=== PATIENT | female | born 1980 | race Caucasian/White ===

== ENCOUNTER 2023-02-22 14:51 | Emergency (ER) | payer OTHER, SELFPAY ==
--- NOTE | 2023-02-22 14:52 | ED.FEMALEGU ---
HPI - Female Genitourinary General Chief complaint: Urogenital-Female Stated complaint: UTI Time Seen by Provider: 02/22/23 14:52 Source: patient Mode of arrival: ambulatory Limitations: no limitations History of Present Illness HPI Narrative: Chiquis is a 42-year-old female patient presenting to the clinic today with complaints of possible urinary tract infection. She reports symptoms of dysuria, frequency, and low urine output started this morning. She has taking some [id number] azo to help alleviate her symptoms. She denies any fever or chills. She is also reporting some low back pain and abdominal cramping. She denies any vaginal discharge Related Data Home Medications Medication Instructions Recorded Confirmed levetiracetam 750 mg tablet 75 mg PO BID 02/22/23 02/22/23 losartan 50 mg tablet 50 mg PO DAILY 02/22/23 02/22/23 rizatriptan 10 mg tablet 10 mg PO HS PRN Migraine Headache 02/22/23 02/22/23 topiramate 100 mg tablet 100 mg PO HS 02/22/23 02/22/23 Allergies Allergy/AdvReac Type Severity Reaction Status Date / Time No Known Allergies Allergy Mild Verified 02/22/23 14:53 Review of Systems Review of Systems: Pertinent positives per HPI. Patient denies any fever, chills, rash, headache, visual changes, dizziness, cough, runny nose, sore throat, shortness of breath, chest pain, palpitations, nausea, vomiting, diarrhea, constipation PMFSH Comments At the time of my signature, I reviewed and agree with the nursing past medical, surgical, social, and family history. There is no relevant family history pertinent to the patient complaint. Exam Narrative: General: Well-developed, well nourished, in no apparent distress. Head: Normocephalic, atraumatic. Cardio: Regular rate and rhythm, s1 and s2 normal, no murmur appreciated. Resp: Clear to auscultation bilaterally, no rhonchi, rales, wheezing or rubs. Abdomen: Soft, pliable, bowel sounds present in all quadrants, tender to palpation over the suprapubic bladder, no organomegly, no CVAT tenderness. Course Course Emergency Course: Portions of this record may have been created with voice recognition software. Level of Care: Express Care Visit Vital Signs Vital signs: Vital signs reviewed MDM - Female Genitourinary MDM Narrative Medical decision making narrative: At the time of visit patient is resting comfortably on exam table. Urinalysis was skewed due to azo so we will send for culture. I will go ahead and treat with Macrobid. Supportive measures were discussed with the patient she voiced understanding discharge instructions agrees to treatment plan. Differential Diagnosis Differential diagnosis: Likely urinary tract infection and cystitis Discharge Plan Discharge Clinical Impression: Urinary tract infection Qualifiers: Urinary tract infection type: acute cystitis Hematuria presence: with hematuria Qualified Code(s): N30.01 - Acute cystitis with hematuria Patient Disposition: Home, Self-Care Condition: Stable Instructions: Antibiotic Form, Urinary Tract Infection in Women (ED) Additional Instructions: UA is skewed due to azo. Will send urine for culture Take Macrobid as prescribed May continue taking azo for urinary symptoms Increase fluids and stay well hydrated Wipe front to back. May use wet wipes. Avoid tub baths If sexually active- pee before and after intercourse. Wear cotton panties Avoid tight clothing up against the genitals Follow up with your PCP in 1 week if symptoms persist. Prescriptions: New nitrofurantoin monohyd/m-cryst [Macrobid] 100 mg capsule 100 mg PO Q12H 5 Days Qty: 10 0RF Rx Instructions: must administer with a meal/food No Action losartan 50 mg tablet 50 mg PO DAILY rizatriptan 10 mg tablet 10 mg PO HS PRN (Reason: Migraine Headache) levetiracetam 750 mg tablet 75 mg PO BID topiramate 100 mg tablet 100 mg PO HS Follow-up/Referrals: Natalio
[2023-02-22 15:05] VITALS: BP 117/101; PULSE 128; RESP 18; TEMP 37.1; O2SAT 99
== END 2023-02-22 15:15 | disposition home or self-care (01) ==
LOC: EXPTROY 14:59
PROVIDERS: Emergency Provider Nurse Practitioner Family; PCP Family Medicine
DX: N30.01 Acute cystitis with hematuria (principal); G40.909 Epilepsy, unspecified, not intractable, without status epilepticus; I10 Essential (primary) hypertension
CPT/HCPCS: 81003; 87086; 87088; 99213; G0463

== ENCOUNTER 2023-06-17 08:01 | Emergency (ER) | payer OTHER, SELFPAY ==
--- NOTE | ~2023-06-17 | XR_ITS ---
XR abdomen/kub 1V DATE: 06/17/2023 08:31 INDICATION: Left flank pain, started last night. TECHNIQUE: AP supine view COMPARISON: None FINDINGS: IUD overlies the pelvis. Several probable calcified pelvic phleboliths. Approximately 4.8 x 6.3 mm calcification overlies the upper pole of the left kidney. Approximately 3.5 mm long very thin linear calcification approximately 2.8 mm even thinner subtle saige ear calcification overlie the mid right kidney. Noncontrast CT abdomen pelvis would be more sensitive and specific for detection of urinary tract calculi. No visceromegaly is evident. The psoas shadows are intact. There is no evidence of bowel obstruction. Included skeletal structures are unremarkable. IMPRESSION: Calcifications overlying the renal silhouettes; consider noncontrast CT abdomen pelvis fo r evaluation of possible urinary tract calculi Reviewed, dictated and finalized at [facility]. Reviewed, dictated and finalized at [facility]. IMPRESSION: Calcifications overlying the renal silhouettes; consider noncontras t CT abdomen pelvis for evaluation of possible urinary tract calculi
--- NOTE | 2023-06-17 08:08 | ED.FEMALEGU ---
HPI - Female Genitourinary General Chief complaint: Urogenital-Female Stated complaint: Female Urogenital Time Seen by Provider: 06/17/23 08:08 Source: patient Mode of arrival: ambulatory Limitations: no limitations History of Present Illness HPI Narrative: 42 Year old female presents with complaint of hematuria for the past 4 days. Has had urgency, frequency, left flank pain for the past 2 days. Reports left flank pain getting significantly worse, unable to sleep last night due to pain. Afebrile. Denies nausea vomiting. No history of kidney stones. Pt tearful states back pain is really bad . All systems reviewed and negative except as noted above. Related Data Home Medications Medication Instructions Recorded Confirmed levetiracetam 750 mg tablet 75 mg PO BID 02/22/23 06/17/23 losartan 50 mg tablet 50 mg PO DAILY 02/22/23 06/17/23 rizatriptan 10 mg tablet 10 mg PO HS PRN Migraine Headache 02/22/23 06/17/23 topiramate 100 mg tablet 100 mg PO HS 02/22/23 06/17/23 levonorgestrel 21 mcg/24 hours (8 See Rx Instructions .Route .COMPLEX 06/17/23 06/17/23 yrs) 52 mg intrauterine device (Mirena) Allergies Allergy/AdvReac Type Severity Reaction Status Date / Time No Known Allergies Allergy Mild Verified 06/17/23 08:03 Review of Systems Review of Systems: CONSTITUTIONAL: Denies fever, chills, or sweats. EYES: Denies visual changes, redness, or discharge. ENT: Denies rhinorrhea, congestion, sore throat, or otalgia. CARDIOVASCULAR: Denies chest pain, palpitations, or edema. RESPIRATORY: Denies cough or dyspnea. GASTROINTESTINAL: Denies abdominal pain, nausea, vomiting, or diarrhea. GENITOURINARY: Denies dysuria . Reports hematuria, frequency, urgency, left flank pain. SKIN: Denies rash or itching. MUSCULOSKELETAL: Denies back pain, joint pain, or myalgia. NEUROLOGIC: Denies headache, numbness, or weakness. PSYCHIATRIC: Denies anxiety or depression. All other systems reviewed are negative, except as documented in HPI. [facility] Past Medical History Medical History (Updated 06/17/23 @ 09:07 by Lisset Camarillo NP) Asthma Hypertension Migraine headache Seizure disorder Thyroid nodule Surgical History Surgical History (Updated 05/28/23 @ 12:21 by ASIYA Randall) History of section 2012, 2015 Social History Social History (Updated 05/28/23 @ 11:10 by Chanelle Marr MA) Smoking status: Never smoker Alcohol intake: current Substance use: never Substance use type: does not use Lack of Transportation: No Lack of Food: Never True Current Housing: I Have Housing Concerned About Future Housing: No Difficulty Paying Gas/Electric Bills: No Difficulty Paying for Meds: No Currently Unemployed: No Education: Master's Degree or Higher Difficulty w/ Childcare or Family Care: No Living arrangements: with family Occupation/Education: occupation Gender identity (if verbalized by the patient): Female Sexual Orientation (if Verbalized by the Patient): Straight or Heterosexual Comments At time of signature, agree with nursing past medical, surgical, social and family history. There is no relevant family history pertinent to the presenting complaint. Exam Narrative: GENERAL: This is a well-nourished, well-developed patient, in no apparent distress. HEAD: normocephalic, atraumatic. EYES: PERRL. Sclera clear/white. Vision is grossly intact. EARS: External ears normal NOSE: External nose normal NECK: Neck supple, non-tender without lymphadenopathy, masses or thyromegaly. CARDIOVASCULAR: Regular rate and rhythm without murmurs, gallops, or rubs. RESPIRATORY: Clear to auscultation. Breath sounds equal bilaterally. No wheezes, rales, or rhonchi. SKIN: warm, Dry, intact with no suspicious lesions or rash, good texture and turgor. NEURO: awake, alert, and oriented to person, place and time. There were no obvious focal neurologic abnormalities. EXTREMITIES:
[2023-06-17 08:11] VITALS: BP 137/90; PULSE 102; RESP 18; TEMP 36.5; O2SAT 100
[2023-06-17] MEDS: KETOROLAC 30 MG/ML VIAL (*BKC) IM (09:07)
== END 2023-06-17 09:16 | disposition short-term general hospital (02) ==
PROVIDERS: Emergency Provider Nurse Practitioner Family; PCP Family Medicine
DX: N20.0 Calculus of kidney (principal); J45.909 Unspecified asthma, uncomplicated; I10 Essential (primary) hypertension; G40.909 Epilepsy, unspecified, not intractable, without status epilepticus
CPT/HCPCS: 74018; 81003; 96372; 99213; G0463; J1885

== ENCOUNTER 2023-06-17 09:30 | Emergency (ER) | payer OTHER, SELFPAY ==
--- NOTE | ~2023-06-17 | CT_ITS ---
EXAMINATION: CT abdomen pelvis wo con DATE: 06/17/2023 10:27 INDICATION: Left flank pain. Hematuria. TECHNIQUE: Computed tomography (CT) of the abdomen and pelvis was performed without intravenous contr ast. Automated exposure control and iterative reconstruction technique were employed. The dose-length product was 179.19 mGy-cm. COMPARISON: None. FINDINGS: The visualized portions of the lung bases are clear without pneumonia or pleural effusion. The heart size is normal. No pericardial effusion. The liver, gallbladder, spleen, pancreas, adrenal glands, and right kidney are normal. There is a 6 mm stone in left kidney. There is a 3 mm stone at l eft ureterovesicular junction. There is mild left hydronephrosis. There is an intrauterine device in expected position. There are no dilated loops of bowel. The appendix is not visualized. There are no pathologically enlarged lymph nodes. There is no free intraperitoneal fluid. There is thoracolumbar d extroscoliosis. IMPRESSION: 1. 3 mm stone at left ureterovesicular junction with mild left hydronephrosis. 2. 6 mm nonobstructing left kidney stone. Reviewed, dictated and finalized at [facility].
--- NOTE | ~2023-06-17 | XR_ITS ---
EXAMINATION: XR abdomen/kub 1V DATE: 06/17/2023 10:47 INDICATION: Left ureteral stone. TECHNIQUE: A supine view of the abdomen on 2 radiographs was obtained. COMPARISON: CT abdomen and pelvis 06/17/2023 FINDINGS: There are no dilated loops of bowel. There is an intrauterine device in expected position. There is a 6 mm stone in left kidney. There is a 3 mm stone at left ureterovesicular junction. There are phleboliths in the pelvis. IMPRESSION: 1. 3 mm stone at left ureterovesicular junction. 2. 6 mm left kidney stone. Reviewed, dictated and finalized at [facility].
[2023-06-17 09:31] VITALS: BP 130/92; PULSE 102; RESP 16; TEMP 36.9; O2SAT 100
--- NOTE | 2023-06-17 09:45 | ED.FEMALEGU ---
HPI - Female Genitourinary General Chief complaint: Urogenital-Female Stated complaint: kidney stone Time Seen by Provider: 06/17/23 09:34 Source: patient and old records reviewed Mode of arrival: ambulatory Limitations: no limitations History of Present Illness HPI Narrative: Patient is a 42-year-old female who presents ED with report of left flank pain. Patient reports she experienced lower abdominal cramping and hematuria 4 to 5 days ago. Yesterday she experienced urinary frequency and urgency. She assumed she was developing a UTI. Throughout the night, she developed pain in her left flank region, which radiated around to her left abdomen. Pain was constant throughout the night. She went to an urgent care this morning and was told she had left renal stones via KUB x-ray. She was then referred here for further evaluation. Patient was given a dose of Toradol at the urgent care and has no pain currently. Denies any nausea, vomiting, fevers. Denies previous history of kidney stones. Denies diarrhea, constipation. Related Data Home Medications Medication Instructions Recorded Confirmed levetiracetam 750 mg tablet 75 mg PO BID 02/22/23 06/17/23 losartan 50 mg tablet 50 mg PO DAILY 02/22/23 06/17/23 rizatriptan 10 mg tablet 10 mg PO HS PRN Migraine Headache 02/22/23 06/17/23 topiramate 100 mg tablet 100 mg PO HS 02/22/23 06/17/23 levonorgestrel 21 mcg/24 hours (8 See Rx Instructions .Route .COMPLEX 06/17/23 06/17/23 yrs) 52 mg intrauterine device (Mirena) Allergies Allergy/AdvReac Type Severity Reaction Status Date / Time No Known Allergies Allergy Mild Verified 06/17/23 09:50 Review of Systems Review of Systems: CONSTITUTIONAL: Denies fever, chills, or sweats. CARDIOVASCULAR: Denies chest pain. RESPIRATORY: Denies dyspnea. GASTROINTESTINAL: See HPI. GENITOURINARY: See HPI. SKIN: Denies rash or itching. MUSCULOSKELETAL: See HPI. NEUROLOGIC: Denies headache, numbness, or weakness. All systems reviewed & are unremarkable except as noted in HPI and below PMFSH Past Medical History Medical History Asthma Hypertension Migraine headache Seizure disorder Thyroid nodule Surgical History Surgical History History of section 2015 Social History Social History Smoking status: Never smoker Alcohol intake: current Substance use: never Substance use type: does not use Lack of Transportation: No Lack of Food: Never True Current Housing: I Have Housing Concerned About Future Housing: No Difficulty Paying Gas/Electric Bills: No Difficulty Paying for Meds: No Currently Unemployed: No Education: Master's Degree or Higher Difficulty w/ Childcare or Family Care: No Living arrangements: with family Occupation/Education: occupation Gender identity (if verbalized by the patient): Female Sexual Orientation (if Verbalized by the Patient): Straight or Heterosexual Exam Narrative: GENERAL: Well appearing, thin, non-toxic, in no acute distress. HEAD: Normocephalic, atraumatic. NECK: Supple. No adenopathy, no masses. RESPIRATORY: Airway patent, respirations nonlabored. Clear to auscultation bilaterally, no rales, rhonchi, wheezing. CARDIOVASCULAR: Regular rate and rhythm without murmurs, rubs, or gallops. Radial pulses 2+ and equal bilaterally. ABDOMINAL: Soft, minimal tenderness in lower pelvic/suprapubic region, nondistended, no hepatosplenomegaly. Normoactive BS. No significant CVA tenderness to percussion. MUSCULOSKELETAL: Moves all extremities. Strength/ROM intact without gross deformities. SKIN: Warm, dry, normal color. No rashes. NEURO: A&O X3. Speech clear. Cranial nerves II-XII grossly intact. Steady gait. No ataxic movements. PSYCHIATRIC: Appropriate mood and affect. Normal interact
[2023-06-17 09:55] LABS: Basophils Percent Auto 0.3 % (0.2-1.2); Eosinophils Percent Auto 0.4 % (0-4.4); Hematocrit 42.1 % (37.0-47.0); Hemoglobin 13.5 g/dL (12.0-15.0); Immature Granulocyte Absolute 0.04 K/mm3 (0.00-0.031); Immature Granulocyte Percent A 0.4 % (0-0.5); Lymphocytes Absolute Auto 0.96 K/mm3 (0.9-3.2); Lymphocytes Percent Auto 10.5 % (18.3-44.2); Mean Corpuscular HGB Conc 32.1 g/dl (32-36); Mean Corpuscular Hemoglobin 28.8 pg (26-34); Mean Corpuscular Volume 89.8 fl (80-100); Mean Platelet Volume 9.2 fl (7.4-10.4); Monocytes Absolute Auto 0.4 K/mm3 (0.1-0.6); Monocytes Percent Auto 4.2 % (2.6-8.5); Neutrophils Absolute Auto 7.7 K/mm3 (1.3-6.7); Neutrophils Percent Auto 84.2 % (45.5-73.1); Platelet Count Result 212 k/mm3 (150-375); Red Blood Count 4.69 M/mm3 (4.2-5.4); Red Cell Distribution Width 12.8 % (11.5-14.5); White Blood Count 9.1 K/mm3 (4.5-10.0)
[2023-06-17 10:01] LABS: Appearance Urine Clear (Clear); Bacteria Urine None Seen /hpf; Bilirubin Urine Negative (Negative); Blood Urine 1+ (Negative); Color Urine Yellow (Yellow); Glucose Urine UA Negative (Negative); Ketones Urine Negative (Negative); Leukocyte Esterase Ur Negative LEU/UL (Negative); Nitrate Urine Negative (Negative); Non Pathogenic Casts 0-2; Protein Urine Negative (Negative); RBC Urine 0-2 /hpf (0-2); Specific Grav Ur 1.009 (1.001-1.035); Squamous Epithelial Cell Urine None seen /hpf (Few); WBC Urine 0-5 /hpf
[2023-06-17 10:07] LABS: Anion Gap 9 mmol/L (8-16); Blood Urea Nitrogen 18 mg/dL (7-17); Carbon Dioxide 23 mmol/L (22-30); Chloride 108 mmol/L (98-107); Estimated CRCL calculation 56 ml/min; Estimated Glomerular Filt Rate > 60; Glucose 106 mg/dL (65-110); Lipase 93 U/L (23-300); Potassium 3.6 mmol/L (3.4-5.0); Sodium 140 mmol/L (137-145)
[2023-06-17 10:25] LABS: Add Urine Microscopic? YES
[2023-06-17] MEDS: TAMSULOSIN HCL 0.4 MG CAPSULE PO (11:13)
[2023-06-17 11:18] VITALS: BP 128/74; PULSE 87; RESP 16; O2SAT 99
== END 2023-06-17 11:19 | disposition home or self-care (01) ==
PROVIDERS: Emergency Provider Physician Assistant; PCP Family Medicine
DX: N13.2 Hydronephrosis with renal and ureteral calculous obstruction (principal); J45.909 Unspecified asthma, uncomplicated; I10 Essential (primary) hypertension; G40.909 Epilepsy, unspecified, not intractable, without status epilepticus
CPT/HCPCS: 36415; 74018; 74176; 80048; 81001; 81003; 81025; 83690; 85025; 96372; 99284; A9270; J1885

== ENCOUNTER 2025-06-16 14:05 | Outpatient (CLI) | payer OTHER, SELFPAY ==
--- NOTE | ~2025-06-16 | US_ITS ---
US thyroid INDICATION: Nontoxic thyroid nodule TECHNIQUE: Real-time sonographic images of the thyroid gland were obtained. COMPARISON: Ultrasound dated 02/21/2017 FINDINGS: The right thyroid lobe measures 4.8 x 1.4 x 1.3 cm. The left thyroid lobe measures 4.7 x 2 .5 x 1.9 cm. There are bilateral thyroid nodules. Laterally in the right thyroid gland there is a 6 m m oval hypoechoic solid wider than tall smoothly marginated mass without echogenic foci, TR 4. Inferi laura in the right thyroid gland there is an oval solid hypoechoic wider than tall smoothly marginated mass measuring 7 x 5 x 3 mm, TR 4. In the left lobe there is a complex heterogeneous solid, hypoecho ic, wider than tall mass with ill-defined margins measuring 3.7 x 1.9 x 2.7 cm. There are punctate in ternal echogenic foci, TR 5. This mass was previously biopsy-proven benign left minimal increase in s ize compared with prior examination. Normal vascular flow is present. IMPRESSION: 1. Bilateral thyroid masses, compatible with multinodular goiter. Dominant mass in the left lobe is slightly increased in size compared with prior examination, although previously biopsy-proven benign. Reviewed, dictated and finalized at [facility]. IMPRESSION: 1. Bilateral thyroid masses, compatible with multinodular goiter. Dominant mas s in the left lobe is slightly increased in size compared with prior examinatio n, although previously biopsy-proven benign.
== END 2025-06-16 14:06 | disposition home or self-care (01) ==
PROVIDERS: PCP Family Medicine; Visit Provider Family Medicine
DX: E07.9 Disorder of thyroid, unspecified (principal)
CPT/HCPCS: 76536